=== PATIENT | male | born 1950 | race Caucasian/White ===

== ENCOUNTER 2018-12-04 12:32 | Observation (INO) | payer BC, OTHER ==
[~2018-12-04] VITALS: Ht 185.4 cm; Wt 108.9 kg
[2018-12-04 12:32] VITALS: BP_SYST 113
[2018-12-04 13:35] LABS: CALCIUM 9.3 mg/dL (8.4-11.0); CREATININE 1.05 mg/dL (0.55-1.30); POTASSIUM 4.1 mmol/L (3.5-5.1)
[2018-12-04 13:39] LABS: INR 1.1 (0.80-1.20); PROTHROMBIN TIME 11.6 SECS (9.5-12.5)
[2018-12-04 13:40] LABS: ALBUMIN 3.8 g/dL (3.4-4.8)
[2018-12-04 13:41] LABS: BASOPHILS # (AUTO) 0.1 K/uL (0.0-0.2); HEMATOCRIT 44.9 % (36-54); HEMOGLOBIN 14.6 g/dL (14.0-18.0); LYMPHOCYTES # (AUTO) 0.8 K/uL (1.0-5.5); LYMPHOCYTES % (AUTO) 5.3 % (20.5-51.5); MEAN CORPUSCULAR HEMOGLOBIN 31 pg (27-31); MEAN CORPUSCULAR HGB CONC 33 % (32-36); MEAN CORPUSCULAR VOLUME 94 fL (79.0-98.0); MONOCYTES # (AUTO) 1.4 K/uL (0.0-1.0); MONOCYTES % (AUTO) 9.8 % (1.7-9.3); NEUTROPHILS # (AUTO) 11.9 K/uL (1.8-7.7); PLATELET COUNT (AUTO) 217 K/uL (130-430); RED BLOOD CELL COUNT(AUTO) 4.78 MIL/uL (4.2-6.2); RED CELL DISTRIBUTION WIDTH 12.9 % (9.0-15.0); WHITE BLOOD COUNT (AUTO) 14.2 K/uL (4.8-10.8)
[2018-12-04 14:00] LABS: NEUTROPHILS % (AUTO) 83.9 % (40.0-70.0)
[2018-12-04] MEDS ORDERED: SENN-22 PO (15:15)
[2018-12-04] MEDS ORDERED: CARV6.2554 PO (15:15)
[2018-12-04] MEDS ORDERED: TRAM100T34 PO (15:15)
[2018-12-04] MEDS ORDERED: LIP40 PO (15:15)
[2018-12-04] MEDS ORDERED: SACU1TAB4 PO (15:15)
[2018-12-04] MEDS ORDERED: ASPI-1153 PO (15:15)
[2018-12-04] MEDS ORDERED: MAG-AL HYDROX/SIMETH 30 ML UDC PO ONE (15:30)
[2018-12-04 17:26] VITALS: BP_SYST 155
[2018-12-04] MEDS ORDERED: ATORVASTATIN 20 MG TABLET PO ONE (18:45)
[2018-12-04] MEDS ORDERED: CARVEDILOL 6.25 MG TABLET (COREG) PO ONE (18:45)
[2018-12-04] MEDS ORDERED: ASPIRIN 81 MG TABLET(ECOTRIN) PO ONE (18:45)
[2018-12-04 20:22] VITALS: BP_SYST 116
[2018-12-04] MEDS: HYDROcodone/ACETAMIN 5-325 MG TAB (NORCO/ VICODIN) PO PRN (20:42)
[2018-12-05 00:19] VITALS: BP_SYST 110
[2018-12-05] MEDS: HYDROcodone/ACETAMIN 5-325 MG TAB (NORCO/ VICODIN) PO PRN ×2 (01:46→08:07)
[2018-12-05 08:00] VITALS: BP_SYST 134
[2018-12-05] MEDS ORDERED: CARVEDILOL 6.25 MG TABLET (COREG) PO SCH (09:00)
[2018-12-05] MEDS ORDERED: ASPIRIN 81 MG TABLET(ECOTRIN) PO SCH (09:00)
[2018-12-05] MEDS ORDERED: ATORVASTATIN 20 MG TABLET PO SCH (09:00)
[2018-12-05 12:23] VITALS: BP_SYST 137
[2018-12-05 12:47] VITALS: BP_SYST 137
== END 2018-12-05 13:45 | disposition home or self-care (01) ==
LOC: SED 12:32 → STU 15:15
PROVIDERS: ADMIT Internal Medicine Hospice and Palliative Medicine; ATTEND Internal Medicine Hospice and Palliative Medicine
DX: R07.89 Other chest pain (principal); I42.9 Cardiomyopathy, unspecified; I42.0 Dilated cardiomyopathy; I11.0 Hypertensive heart disease with heart failure; I50.9 Heart failure, unspecified; G89.29 Other chronic pain; E78.5 Hyperlipidemia, unspecified; I25.10 Atherosclerotic heart disease of native coronary artery without angina pectoris; K44.9 Diaphragmatic hernia without obstruction or gangrene; Z23 Encounter for immunization
CPT/HCPCS: 36415 ×2; 71045; 80053; 83880; 84484 ×2; 85025; 85610; 85730; 90471; 90656; 93005; 99285; G0378 ×2